=== PATIENT | male | born 1985 | race Asian ===

== ENCOUNTER 2017-11-26 19:50 | Emergency (ER) | payer MEDICAID ==
[~2017-11-26] VITALS: Ht 170.2 cm; Wt 80.9 kg
[2017-11-26] MEDS ORDERED: ipratropium/albuterol 3ml nebule NEB ONE (20:05)
[2017-11-26] MEDS ORDERED: normal saline 1000ML IV soln IVB ONE (20:05)
[2017-11-26 20:44] LABS: BASOPHILS % (AUTO) 0.3 % (0-1); EOSINOPHILS # (AUTO) 0.1 X10'3 (0-0.9); EOSINOPHILS % (AUTO) 0.8 % (0-6); HEMATOCRIT 46.6 % (42.0-52.0); HEMOGLOBIN 15.3 g/dl (14.0-17.9); LYMPHOCYTES # (AUTO) 1.9 X10'3 (1.1-4.8); LYMPHOCYTES % (AUTO) 12.8 % (21-51); MEAN CORPUSCULAR HEMOGLOBIN 22.1 PG (27.0-31.0); MEAN CORPUSCULAR HGB CONC 32.8 % (33.0-36.5); MEAN CORPUSCULAR VOLUME 67.2 FL (78-98); MEAN PLATELET VOLUME 9.5 FL (7.4-10.4); MONOCYTES # (AUTO) 0.9 X10'3 (0-0.9); MONOCYTES % (AUTO) 6.3 % (2-12); NEUTROPHILS % (AUTO) 79.8 % (42-75); PLATELET COUNT 145 X10'3 (140-440); RED BLOOD COUNT 6.93 X10'6 (4.70-6.10); RED CELL DISTRIBUTION WIDTH 15.1 % (11.5-14.5)
[2017-11-26 21:01] LABS: INR 1.2 INR; PARTIAL THROMBOPLASTIN TIME 28 SECONDS (22-32); PROTHROMBIN TIME 12.7 SECONDS (9.0-12.0)
[2017-11-26 21:10] LABS: ALANINE AMINOTRANSFERASE 79 U/L (12-78); ALBUMIN 4.2 G/DL (3.4-5.0); ALBUMIN/GLOBULIN RATIO 1.1 (1.1-1.5); ALKALINE PHOSPHATASE 73 IU/L (46-116); ANION GAP 13 (8-16); ASPARTATE AMINO TRANSFERASE 29 U/L (10-37); BILIRUBIN,TOTAL 0.4 MG/DL (0.1-1.0); BLOOD UREA NITROGEN 8 MG/DL (7-18); BUN/CREATININE RATIO 8.3 (5.4-32.0); CALCIUM 9.2 MG/DL (8.5-10.1); CHLORIDE 104 MMOL/L (99-107); CREATININE 0.96 MG/DL (0.60-1.10); GLUCOSE 102 MG/DL (70-104); MAGNESIUM 1.7 MG/DL (1.5-2.4); POTASSIUM 3.9 MMOL/L (3.5-5.1); SODIUM 141 MMOL/L (135-145); TOTAL CARBON DIOXIDE 23.6 MMOL/L (24-32); TOTAL PROTEIN 8.2 G/DL (6.4-8.2); eGFR 90 ML/MIN
[2017-11-26 21:40] LABS: ELLIPTOCYTES FEW; MICROCYTOSIS 2+; PLATELET ESTIMATE NORMAL; TARGET CELLS FEW
[2017-11-26] MEDS ORDERED: methylPREDNISolone sod succ 125mg/2ml vial IV ONE (23:40)
[2017-11-26] MEDS ORDERED: PRED10TA PO (23:47)
[2017-11-26] MEDS ORDERED: DOXY-200 PO (23:47)
[2017-11-26] MEDS ORDERED: guaiFENesin/DM 10ml UD oral syrup PO ONE (23:50)
[2017-11-26] MEDS ORDERED: BENZ-16 PO (23:51)
[2017-11-27] MEDS ORDERED: guaiFENesin 200 MG/10 ML oral syrup UD cup PO PRN
[2017-11-27 02:19] LABS: CLARITY,URINE Clear (Clear); COLOR,URINE Yellow (Yellow); GLUCOSE, URINE Negative (Neg); KETONES,URINE Negative (Neg); LEUKOCYTE ESTERASE ,URINE Negative (Neg); NITRITES, URINE Negative (Neg); OCCULT BLOOD,URINE Negative (Neg); PH,URINE 5.5 (4.8-8.0); PROTEIN,URINE Negative (Neg); UROBILINOGEN,URINE 0.2 E.U/dL (0.2-1.0)
[2017-11-27 02:25] LABS: UA COLLECTION TYPE VOIDED
[2017-11-27 04:44] VITALS: BP 137/70
== END 2017-11-27 03:50 | disposition home or self-care (01) ==
LOC: ER 19:51
DX: J18.9 Pneumonia, unspecified organism (principal); J45.909 Unspecified asthma, uncomplicated; F17.200 Nicotine dependence, unspecified, uncomplicated; Z79.899 Other long term (current) drug therapy
CPT/HCPCS: 36415; 71045; 80053; 81003; 83605; 83735; 84145; 85025; 85610; 85730; 87040; 87502; 87503; 93005; 94640; 94760; 96361; 96374; 99285; J2930